=== PATIENT | female | born 1960 | race Caucasian/White ===

== ENCOUNTER 2016-10-18 23:57 | Emergency (ER) | payer OTHER ==
[~2016-10-18] VITALS: Ht 175.3 cm; Wt 75.9 kg
[2016-10-19 00:52] LABS: DAU SCREEN DISCLAIMER
[2016-10-19 00:58] LABS: ASPARTATE AMINO TRANSFERASE 34 U/L (15-37); BLOOD UREA NITROGEN 10 mg/dL (7-18)
[2016-10-19 01:01] LABS: ACETAMINOPHEN < 2 mcg/mL (10-30)
[2016-10-19 01:54] VITALS: BP 115/77
== END 2016-10-19 02:54 | disposition home or self-care (01) ==
LOC: ED 23:59
DX: F10.129 Alcohol abuse with intoxication, unspecified (principal); F19.10 Other psychoactive substance abuse, uncomplicated; R09.02 Hypoxemia; M94.0 Chondrocostal junction syndrome [Tietze]; I10 Essential (primary) hypertension
CPT/HCPCS: 36415; 71010; 80053; 80307; 80329; 85025; 93005; 99285; G0480